=== PATIENT | male | born 1980 | race Two or more races ===

== ENCOUNTER 2020-07-19 12:47 | Outpatient (REF) | payer OTHER, SELFPAY ==
[2020-07-19 14:49] LABS: Anion Gap 11 (12-20); Blood Urea Nitrogen 11 mg/dL (9-16); Calcium 9.3 mg/dL (8.4-10.2); Carbon Dioxide 30 mmol/L (22-29); Chloride 101 mmol/L (96-108); Estimated Glomerular Filt Rate > 60; Glucose Random 75 mg/dL (60-115); Potassium 4.2 mmol/L (3.3-5.1); Sodium 138 mmol/L (135-145)
== END 2020-07-19 12:48 | disposition home or self-care (01) ==
LOC: HO.LAB 12:47
PROVIDERS: PCP Internal Medicine; Visit Provider Internal Medicine Cardiovascular Disease
DX: I48.0 Paroxysmal atrial fibrillation (principal); Z79.899 Other long term (current) drug therapy
CPT/HCPCS: 36415; 80048; 93005

== ENCOUNTER → 2021-06-18 13:30 | Outpatient (BNVA) | payer OTHER, SELFPAY | PROVIDERS: PCP Internal Medicine; Referring Provider Internal Medicine; Visit Provider Internal Medicine Cardiovascular Disease | DX: I48.0 Paroxysmal atrial fibrillation (principal) | CPT/HCPCS: 93005 ==

== ENCOUNTER → 2022-05-22 10:19 | Outpatient (BNVA) | payer OTHER, SELFPAY | PROVIDERS: PCP Internal Medicine; Visit Provider Internal Medicine Cardiovascular Disease | DX: I48.91 Unspecified atrial fibrillation (principal) | CPT/HCPCS: 93005 ==

== ENCOUNTER 2022-06-10 15:29 | Outpatient (REF) | payer OTHER, SELFPAY ==
[2022-06-10 16:26] LABS: Hematocrit 45.7 % (42.0-52.0); Hemoglobin 15.7 g/dl (14.0-18.0); Mean Corpuscular HGB Conc 34.4 g/dl (31.0-36.0); Mean Corpuscular Hemoglobin 30.5 pg (27.0-33.0); Mean Corpuscular Volume 88.7 fL (80.0-98.0); Mean Platelet Volume 10.9 fL (9.4-12.4); Platelet Count 260 X10*3/uL (160-400); Red Blood Count 5.15 X10*6/uL (4.60-5.80); Red Cell Distribution Width 13.5 % (11.0-16.0); White Blood Count 11.6 X10*3/uL (4.8-10.8)
[2022-06-10 16:51] LABS: Anion Gap 11 (12-20); Blood Urea Nitrogen 11 mg/dL (9-16); Calcium 9.6 mg/dL (8.4-10.2); Carbon Dioxide 28 mmol/L (22-29); Chloride 106 mmol/L (96-108); Estimated Glomerular Filt Rate > 60; Glucose Random 82 mg/dL (60-115); Potassium 4.5 mmol/L (3.3-5.1); Sodium 140 mmol/L (135-145)
== END 2022-06-10 15:30 | disposition home or self-care (01) ==
LOC: HO.LAB 15:29
PROVIDERS: PCP Internal Medicine; Referring Provider Internal Medicine; Visit Provider Internal Medicine Cardiovascular Disease
DX: I48.0 Paroxysmal atrial fibrillation (principal)
CPT/HCPCS: 36415; 80048; 85027

== ENCOUNTER 2022-12-14 11:04 | Emergency (ER) | payer OTHER, SELFPAY ==
--- NOTE | ~2022-12-14 | CT_ITS ---
EXAMINATION: CT ABDOMEN AND PELVIS WITH CONTRAST CLINICAL INFORMATION: Pain; history of renal infarction. COMPARISON: CT abdomen and pelvis dated 05/03/2019. TECHNIQUE: Multidetector volumetric images were obtained from the superior aspect of the liver through the pubic symphysis following administration 85 mL of Omnipaque 350 intravenous contrast. Sagittal and coronal reformatted images were obtained on the technologist's workstation. Oral contrast: No This CT examination was performed using dose optimization techniques as appropriate, variously including the following: *Automated exposure control *Adjustment of mA and/or kV according to patient size (this includes techniques or standardized protocols for targeted exams where dose is matched to indication/reason for exam; i.e. extremities or head) *Use of iterative reconstruction technique DLP: 516 mGy-cm FINDINGS: LUNG BASES: There is bibasilar dependent hypoaeration, left greater than right. LIVER, GALLBLADDER, AND BILIARY TREE: The liver is normal in size, shape, and attenuation. No focal hepatic lesion or biliary ductal dilatation is present. The gallbladder is unremarkable with no evidence of radiopaque gallstones, gallbladder wall thickening, or obvious pericholecystic inflammatory changes. PANCREAS: Unremarkable. SPLEEN: Unremarkable. ADRENAL GLANDS: Unremarkable. KIDNEYS AND URETERS: The kidneys are normal in size, shape, and attenuation. No hydronephrosis, hydroureter, or calculi seen. No perinephric stranding. BLADDER: Unremarkable. GASTROINTESTINAL TRACT: The small and large bowel are unremarkable. The colon is partially decompressed, in particular the transverse, descending and rectosigmoid segments. The appendix is unremarkable. ABDOMINAL WALL: No significant hernia is appreciated. LYMPH NODES: Normal. VASCULAR: Unremarkable. PELVIC VISCERA: The prostate and seminal vesicles are unremarkable. OSSEOUS STRUCTURES: There is slight posterior spondylosis of the L4 and L5 upper endplates. No acute or aggressive osseous finding is noted. CT/CT abdomen pelvis w IV con IMPRESSION: No significant abnormality. Fleischner guidelines were followed.
[2022-12-14 11:24] VITALS: BP 127/88; PULSE 107; RESP 20; TEMP 36.1; O2SAT 97; BMI 29.3
--- NOTE | 2022-12-14 11:26 | ED_ITS ---
HPI - Back Pain/Injury General Chief Complaint: Back Pain/Injury Stated Complaint: Lower back pain Time Seen by Provider: 12/14/22 11:58 Source: patient and family Mode of arrival: ambulatory Limitations: no limitations History of Present Illness HPI Narrative: Patient is a 42-year-old male with history of CVA, and subsequent renal infarct currently on Eliquis presenting to the emergency department with complaint of left lower back and hip pain. Patient reports that he strained his left lower back while bending over to lift leaves at work on the 8th of this month. Reports area was sore for approximately 2 weeks following this injury then slowly improved. Patient reports over the past 3-4 days the pain has returned. Around 3am this morning patient states the pain was so severe that it woke him from sleep and brought him to his knees when he got out of bed. He took Tylenol prior to arrival. Reports concern given that the last time he felt pain of this severity it was with his renal infarct. States the pain is radiating around to lateral hip and towards his groin. Reports intermittent episodes of the pain shooting down left leg with certain movements. Denies leg pain at rest. Denies any numbness or tingling to left leg. Reports history of prior right lower back injury approximately 5 years prior. Denies any saddle anesthesia or bowel or bladder incontinence. Denies fevers. Denies dysuria, hematuria or other urinary symptoms. Denies any abnormal penile discharge. Denies any abdominal pain. States the pain is tolerable while laying supine, increases which patient describes as spasms with movement. MD elicited complaint: back pain Pertinent past history: prior back pain and other (renal infarct) Onset (ago): day(s) Timing: constant Severity: severe Similar Symptoms Previously: Yes Quality: sharp, aching and spasming Location: left lower back Radiation: other (Left lateral hip) Exacerbating factors: movement, walking, deep breaths and coughing/sneezing Relieving factors: supine Context: while lifting (initially on 11/25/22) Associated symptoms: denies other symptoms Treatments prior to arrival: other (Tylenol) Related Data Home Medications Medication Instructions Recorded Confirmed metoprolol succinate 25 mg 12.5 mg PO DAILY PRN 06/10/22 06/10/22 tablet,extended release 24 hr Previous Rx's Medication Instructions Recorded diltiazem HCl 180 mg 180 mg PO DAILY 90 days #90 caps 10/28/22 capsule,extended release 24 hr apixaban 5 mg tablet (Eliquis) 5 mg PO BID 30 days #60 tabs 11/30/22 cyclobenzaprine 5 mg tablet 5 mg PO TID PRN muscle spasm #12 12/14/22 tabs lidocaine 5 % topical patch 1 patch topical DAILY #15 ea 12/14/22 Allergies Allergy/AdvReac Type Severity Reaction Status Date / Time No Known Allergies Allergy Verified 12/14/22 11:32 [No Known Allergies*] Review of Systems Review of Systems: As per HPI. Yes all other systems are reviewed and are negative Constitutional: Constitutional: Reports as per HPI [facility] Past Medical History Medical History Paroxysmal atrial fibrillation Renal infarct Surgical History No pertinent past surgical history Family History Family History Father Medical history unknown Mother Brain cancer Sister Heart disease Sleep apnea CVD (cardiovascular disease) Maternal Grandfather Cancer Son In good health Social History Social History Alcohol intake: current Alcohol intake frequency: a few times a month Cigarettes Per Day: 10 Advance Directives: No Advance Directives Information Provided: No Physical Exam Vital Signs: Vital Signs: Last Vital Signs Temp 97.0 F 12/14/22 11:24 Pulse 107 H 12/14/22 11:24 Resp 20 12/14/22 11:24 BP 127/88 12/14/22 11:24 Pulse Ox 97 12/14/22 11:24 O2 Del Method Room Air 12/14/22 11:24 BMI result Body Mass Index 29.3 Vital signs have been reviewed and appear to be correct. Blood pressure normal. Heart rate mildly tachycardic. Respiratory rate normal. Temperature normal. Oxygen saturation normal. Const: General: cooperative, healthy appearing and no acute distress Orientation/consciousness: oriented to person, oriented to place, oriented to time and patient oriented x3 Limitations: no limitations HEENT: Head: Yes normocephalic and Yes atraumatic Ears: external ears normal General nose exam: Normal external nose present Face and sinus: Yes face symmetric Mouth: oropharynx normal and moist mucous membranes Throat: Yes uvula midline Eyes: Pupils: Equal, round and reactive pupils present Neck: Neck: Yes normal visual inspection and Yes supple Resp: Effort & Inspection: normal respiratory effort and able to speak in complete sentences Auscultation: clear to auscultation bilaterally Cardio: Rate: regular rate Rhythm: regular rhythm Heart sounds: S1 normal heart sound present and S2 normal heart sound present GI: Inspection: Yes normal to inspection Palpation (GI): Soft to palpation, nontender and no hernias Auscultation: normoactive bowel sounds : General: Yes no CVA tenderness Back/Spine/Pelvis: Back: no CVA tenderness Cervical Spine: normal cervical lordosis, cervical ROM normal and No Cervical spine tenderness Thoracic/Lumbar Spine: thoracic and lumbar spine normal to inspection, thoraco-lumbar ROM normal, pain with thoraco-lumbar ROM, paraspinal muscle tenderness on the left in the upper thoracic and in the mid lumbar, No thoracic spinal tenderness, No lumbar spinal tenderness and straight leg raise positive bilateral Pelvis: no pain with lateral compression Sacroiliac joints: on the left tender to palpation Skin: General skin exam: elasticity normal and turgor normal Neuro: General: oriented to person, oriented to place, oriented to time, patient oriented x3, gait normal, tone normal, moves all extremities, Normal lig ht touch and pain sensation, no focal motor deficits, CN's II-XI intact bilaterally and deep tendon reflexes 2+ bilaterally Cranial nerves: Yes Equal, round and reactive pupils present Cognition (Neuro): normal cognition Motor exam (neuro): 5/5 motor strength present throughout, Normal motor muscle tone present throughout and Motor abnormalities not present Sensory Exam: Normal double simultaneous stimulation for sensation Extrem: General: Yes full ROM, Yes normal exam except as noted, Yes no pedal edema and Yes no calf tenderness Left lower extremity: hip/thigh Details: normal to inspection, tenderness Location: of the hip Location: laterally and normal ROM; no ecchymosis Psych: Mental Status: mental status grossly normal Affect: normal affect Thought process: Normal thought process present Course Course Course Narrative: This is an RME: Additional HPI, ROS, PE not included below will be deferred to primary provider. Patient is a 42-year-old male presents emergency department for evaluation of back pain. He reports in March 2019 reports hx of a stroke with renal infarct 2wks later. Reports that he woke with left lower back/hip pain this morning, that has been constant since then but now feels like a diffuse lower back pain. He reports that the severe pain he experienced this morning felt similar to renal infarct pain he has experienced in the past. He is anticoagulated with Eliquis. Denies any genitourinary symptoms or constipation/diarrhea. He does endorse that earlier this month 11/25/2022 he can straight is doing some heavy lifting, he has had persistent back pain since the n, but this morning was more severe. Plan: Urinalysis, serum labs, CT AP, placed in WR pending bed availability for pain management Medications Administered Discontinued Medications Generic Name Dose Route Start Last Admin Trade Name Freq PRN Reason Stop Dose Admin Cyclobenzaprine HCl 10 mg 12/14/22 12:16 12/14/22 12:21 Cyclobenzaprine Hcl 10 Mg Tablet PO 12/14/22 12:17 10 mg ONCE ONE Administration Medical Decision Making Medical Decision Making [facility] Narrative: Patient is a 42-year-old male with history of CVA, and subsequent renal infarct currently on Eliquis presenting to the emergency department with complaint of left lower back and hip pain. On exam patient is awake, A+Ox3, VS WNL, afebrile, normal neurological exam without focal deficits, no CVA tenderness, no midline spinal tenderness, tenderness over left SI joint and left lateral hip, full range of motion to left hip, straight leg raise positive bilaterally, 2+ DP and PT pulses bilaterally, DTRs 2+ throughout, no palpable hernias. Given rep orted symptoms and physical exam findings, initial differential includes lumbar strain, lumbar radiculopathy, SI joint dysfunction, hip strain. Feel renal infarct unlikely, however will obtain CT scan out of abundance of caution. Labs notable for no leukocytosis, no electrolyte imbalance, no DAISY. No evidence of infection on UA. CT notable for no evidence of renal infarct or other significant abnormality. My interpretation is in agreement with the radiologist's interpretation. Likely muscle strain and feel patient is stable for discharge home. Will prescribe cyclobenzaprine and advised this patient to alternate Tylenol and ibuprofen, take frequent baths with Epsom salt, perform gentle stretching exercises. Differential Diagnosis Differential Diagnoses: The differential diagnosis associated with the presentation includes As per [facility]. Lab Data [facility] Lab Attestation statement: I reviewed the patient's lab results. As per MDM 12/14/22 11:50 12/14/22 11:50 Labs: Lab Results 12/14/22 12/14/22 12/14/22 Range/Units 11:50 11:50 11:50 WBC 8.3 (4.8-10.8) X10*3/uL RBC 5.35 (4.60-5.80) X10*6/uL Hgb 15.7 (14.0-18.0) g/dl Hct 46.3 (42.0-52.0) % MCV 86.5 (80.0-98.0) fL MCH 29.3 (27.0-33.0) pg MCHC 33.9 (31.0-36.0) g/dl RDW 13.5 (11.0-16.0) % Plt Count 270 (160-400) X10*3/uL MPV 10.0 (9.4-12.4) fL Immature Gran % (Auto) 0.2 (0.0-0.4) % Neut % (Auto) 56.6 (45-73) % Lymph % (Auto) 30.4 (20-40) % [place] % (Auto) 11.0 (2-11) % Eos % (Auto) 1.2 (0-4) % Baso % (Auto) 0.6 (0-2) % Lymph # (Auto) 2.5 (1.2-4.9) X10*3/uL [place] # (Auto) 0.9 (0.1-1.2) X10*3/uL Eos # (Auto) 0.1 (0.0-0.4) X10*3/uL Baso # (Auto) 0.1 (0.0-0.2) X10*3/uL Abs Immat Gran (auto) 0.02 (0.00-0.03) X10*3/uL Absolute Neuts (auto) 4.7 (2.0-8.3) x10*3/uL Absolute Nucleated RBC 0.000 (0.0-0.012) X10*3/uL Nucleated RBC % (auto) 0.0 (0.0-0.2) /100WBC PT 13.3 (11.1-13.3) SEC INR 1.1 (0.9-1.1) Sodium 138 (135-145) mmol/L Potassium 3.7 (3.3-5.1) mmol/L Chloride 106 (96-108) mmol/L Carbon Dioxide 25 (22-29) mmol/L Anion Gap 11 L (12-20) BUN 13 (9-16) mg/dL Creatinine 0.86 (0.5-1.4) mg/dL Estim Creat Clear Calc 113.9 Estimated GFR > 60 Random Glucose 107 (60-115) mg/dL Calcium 9.5 (8.4-10.2) mg/dL Total Bilirubin 1.2 H (0.0-1.0) mg/dL AST 20 (5-37) U/L ALT 24 (0-40) U/L Alkaline Phosphatase 75 (39-117) U/L Total Protein 7.4 (6.5-8.0) g/dL Albumin 4.1 (3.5-5.0) g/dL Independent Interpretation I performed an independent interpretation of an: CT Scan Interpretation: No evidence of renal infarct, no other abnormality Radiology Impression Discussion of test interpretation with radiology: I have reviewed the radiologist's reading. Radiologist Impression: CT/CT abdomen pelvis w IV con IMPRESSION: No significant abnormality.? ? Fleischner guidelines were followed. External Record Review External record reviewed: Inpatient record, Office record and Outpatient record Prescription Management I considered prescription management with: Other Discharge Plan Discharge Clinical Impression: Lumbar strain Patient Disposition: Home, Self-Care Instructions: Low Back Strain (ED), Acute Low Back Pain (ED), Lower Back Exercises (ED) Additional Instructions: You were evaluated in the emergency department today for back pain. Your evaluation did not show signs of medical conditions requiring emergent intervention at this time. We recommended that you use Tylenol per package directions every 6 hours as needed for pain. You have been prescribed a muscle relaxer which you may take every 8 hours as needed for spasms. You have been prescribed 5% topical lidocaine patches which you can wear for up to 12 hours in a 24 hour period. Do not apply heat directly over the patches. Please schedule an appointment for follow-up with your primary care physician this week for further evaluation of your symptoms. Return to the emergency department if you experience worsening back pain, difficulty walking, fevers, numbness, tingling, incontinence, groin numbness or tingling, or any other concerning symptoms. Prescriptions: New cyclobenzaprine 5 mg tablet 5 mg PO TID PRN (Reason: muscle spasm) Qty: 12 0RF lidocaine 5 % adhesive patch,medicated 1 patch topical DAILY Qty: 15 0RF Rx Instructions: leave on most painful area for up to 12 hrs No Action diltiazem HCl 180 mg capsule,extended release 24hr 180 mg PO DAILY 90 Days Qty: 90 3RF Eliquis 5 mg tablet 5 mg PO BID 30 Days Qty: 60 6RF metoprolol succinate 25 mg tablet extended release 24 hr 12.5 mg PO DAILY PRN
[2022-12-14 11:55] LABS: MANUAL DIFF FLAG NO
[2022-12-14 11:59] LABS: Basophils Absolute Auto 0.1 X10*3/uL (0.0-0.2); Basophils Percent Auto 0.6 % (0-2); Eosinophils Absolute Auto 0.1 X10*3/uL (0.0-0.4); Eosinophils Percent Auto 1.2 % (0-4); Hematocrit 46.3 % (42.0-52.0); Hemoglobin 15.7 g/dl (14.0-18.0); Imm Gran Abs Auto 0.02 X10*3/uL (0.00-0.03); Imm Gran Pct Auto 0.2 % (0.0-0.4); Lymphocytes Absolute Auto 2.5 X10*3/uL (1.2-4.9); Lymphocytes Percent Auto 30.4 % (20-40); Mean Corpuscular HGB Conc 33.9 g/dl (31.0-36.0); Mean Corpuscular Hemoglobin 29.3 pg (27.0-33.0); Mean Corpuscular Volume 86.5 fL (80.0-98.0); Monocytes Absolute Auto 0.9 X10*3/uL (0.1-1.2); Neutrophils Absolute Auto 4.7 x10*3/uL (2.0-8.3); Neutrophils Percent Auto 56.6 % (45-73); Platelet Count 270 X10*3/uL (160-400); Red Blood Count 5.35 X10*6/uL (4.60-5.80); Red Cell Distribution Width 13.5 % (11.0-16.0); White Blood Count 8.3 X10*3/uL (4.8-10.8)
[2022-12-14 12:01] LABS: INTERNATIONAL NORM RATIO 1.1 (0.9-1.1); Prothrombin Time 13.3 SEC (11.1-13.3)
[2022-12-14 12:12] LABS: Alanine Aminotransferase 24 U/L (0-40); Albumin Level 4.1 g/dL (3.5-5.0); Alkaline Phosphatase 75 U/L (39-117); Anion Gap 11 (12-20); Aspartate Amino Transferase 20 U/L (5-37); Bilirubin Total 1.2 mg/dL (0.0-1.0); Blood Urea Nitrogen 13 mg/dL (9-16); Calcium 9.5 mg/dL (8.4-10.2); Carbon Dioxide 25 mmol/L (22-29); Chloride 106 mmol/L (96-108); Creatinine Clr Calc Pharmacy 113.9; Estimated Glomerular Filt Rate > 60; Glucose Random 107 mg/dL (60-115); Potassium 3.7 mmol/L (3.3-5.1); Sodium 138 mmol/L (135-145); Total Protein 7.4 g/dL (6.5-8.0)
[2022-12-14] MEDS: Cyclobenzaprine HCl 10 MG TABLET PO (12:21)
--- NOTE | 2022-12-14 12:27 | PC.NURSE ---
20g IV placed in left medial wrist, pt awaiting CT w/ con. pt medicated by ANAYA Wong for 11/27 pain. pt resting supine with spouse at bedside NAD noted
== END 2022-12-14 14:45 | disposition home or self-care (01) ==
PROVIDERS: Nurse Practitioner Family; Emergency Provider Emergency Medicine; PCP Internal Medicine
DX: S39.012A Strain of muscle, fascia and tendon of lower back, initial encounter (principal); X50.9XXA Other and unspecified overexertion or strenuous movements or postures, initial encounter; N28.0 Ischemia and infarction of kidney; Z86.73 Personal history of transient ischemic attack (TIA), and cerebral infarction without residual deficits; Z79.01 Long term (current) use of anticoagulants; Y93.H1 Activity, digging, shoveling and raking; Y92.89 Other specified places as the place of occurrence of the external cause; Y99.0 Civilian activity done for income or pay
CPT/HCPCS: 36415; 74177; 80053; 85025; 85610; 99284

== ENCOUNTER 2023-06-18 15:18 | Outpatient (AMB) | payer OTHER, SELFPAY ==
[2023-06-18 15:19] VITALS: BP 120/76; PULSE 93; BMI 29.9
--- NOTE | 2023-06-18 15:19 | A.OFFVIS_ITS ---
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 He said about twice a year he gets an episode of atrial fibrillation without any clear triggers. He then takes half a dose of metoprolol in the episode can last up to 2 hours. He then feels tired and usually takes time of work. However this does not affect his lifestyle. Overall otherwise no prolonged episodes of atrial fibrillation. No changes exercise capacity. Denies any exertional chest pain shortness of breath. Blood pressures been generally well controlled. No bleeding issues or neurologic events. [facility] Medical History Paroxysmal atrial fibrillation Renal infarct Surgical History No pertinent past surgical history Family History Father Medical history unknown Mother Brain cancer Sister Heart disease Sleep apnea CVD (cardiovascular disease) Maternal Grandfather Cancer Son In good health Social History Alcohol intake: current Alcohol intake frequency: a few times a month Cigarettes Per Day: 10 Review of Systems Const Denies chills, Denies fatigue, Denies fever(s), Denies frequent falls, Denies weakness, Denies weight gain and Denies weight loss ENT Denies dizziness Card Denies chest pain, Denies leg edema, Denies lightheadedness, Denies palpitations, Denies dyspnea, Denies dyspnea on exertion, Denies orthopnea and Denies other (loss of consciousness) Resp Denies cough, Denies dyspnea and Denies dyspnea on exertion GI Denies hematochezia and Denies change in stool character Musc Denies abnormal gait, Denies muscle weakness, Denies numbness, Denies radiating pain into limb and Denies tingling Neuro Denies abnormal gait, Denies dizziness, Denies frequent falls, Denies numbness, Denies tingling and Denies weakness Endo Denies fatigue and Denies palpitations Physical Exam Vital Signs: Last Vital Signs Pulse 93 06/18/23 15:19 BP 120/76 06/18/23 15:19 BMI result Body Mass Index 29.9 Const General: cooperative, comfortable, alert and awake Nutritional Appearance: average body habitus Orientation/consciousness: patient oriented x3 Limitations: no limitations HEENT Head: Yes contusion Neck Neck: Yes trachea midline, Yes supple and Yes no JVD Resp Effort & Inspection: normal respiratory effort Auscultation: clear to auscultation bilaterally Cardio Jugular venous distension: no JVD Palpation: normal PMI Rate: regular rate Rhythm: regular rhythm Heart sounds: S1 normal heart sound present and S2 normal heart sound present GI Auscultation: normal bowel sounds Skin General skin exam: no rashes or lesions noted Neuro General: patient oriented x3 and no focal motor deficits Extrem General: Yes no clubbing, cyanosis or edema Psych Appearance: grossly normal Office Procedures EKG Details: EKG shows normal sinus rhythm with T-wave inversion in lead 3 and AVF with nonspecific T-wave changes in the inferolateral lateral leads. [id number], Complete Assessment & Plan Assessment & Plan (1) Paroxysmal atrial fibrillation: Code(s): I48.0 - Paroxysmal atrial fibrillation Plan: Highly symptomatic paroxysmal atrial fibrillation in this young man which has remained predominantly control and suppressed on current therapy. He has couple of episodes of atrial fibrillation throughout the year which are not life- limiting. No change in therapy. Continue p.r.n. metoprolol will change to short-acting metoprolol tartrate. Continue Cardizem CD 180 mg daily. Also given his embolic phenomenon to the kidney I would continue Eliquis 5 mg b.i.d. for life. Semi annual renal function test should be pursued. Avoidance of stimulants was discussed. He understands agrees. Given his baseline EKG today which appears slightly abnormal I would suggest him to undergo an echocardiogram to evaluate for any structural changes in the heart including evidence of left ventricular hypertrophy. Will follow up in the clinic in 1 year's time, sooner p.r.n.. Thank you for allowing me to partake in his care Orders: Orders CA echo transthoracic complete Today I48.0 - Paroxysmal atrial fibrillation Medications: New metoprolol tartrate 12.5 mg (1/2 x 25 mg) PO ONCE PRN 20 tabs 1RF Episode of atrial fibrillation I48.0 - Paroxysmal atrial fibrillation Coding Level of Care Code Est Pt Level 4 (00181) Diagnoses Paroxysmal atrial fibrillation I48.0 CPT Codes EKG - CPT: 47218-[id number], Complete ([id number])
== END 2023-06-18 15:41 | disposition home or self-care (01) ==
PROVIDERS: Visit Provider Internal Medicine Cardiovascular Disease
DX: I48.0 Paroxysmal atrial fibrillation (principal)
CPT/HCPCS: 93010; 99214

== ENCOUNTER → 2023-06-18 15:18 | Outpatient (BNVA) | payer OTHER, SELFPAY | PROVIDERS: Visit Provider Internal Medicine Cardiovascular Disease | DX: I48.0 Paroxysmal atrial fibrillation (principal); Z79.01 Long term (current) use of anticoagulants; Z79.899 Other long term (current) drug therapy | CPT/HCPCS: 93005 ==

== ENCOUNTER → 2023-07-14 15:50 | Outpatient (REF) | payer OTHER, SELFPAY ==
--- NOTE | 2023-07-14 15:53 | CA_ITS ---
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 The calculated ejection fraction is 57% by biplane method. - No obvious valvular pathology seen on this study. Findings Left Ventricle Normal left ventricular cavity size. There is normal left ventricular wall thickness. The left ventricular systolic function is normal. The calculated ejection fraction is 57% by biplane method. There is no evidence of regional wall motion abnormalities. Diastolic function is normal for age. LV peak GLS -17.8%. Right Ventricle Normal right ventricular cavity size and systolic function. Atria Both atria are normal in size. Aortic Valve There is a normal trileaflet aortic valve. There is no aortic valve stenosis. There is no aortic valve regurgitation. Mitral Valve The mitral valve appears normal. There is trace mitral valve regurgitation. There is no mitral valve stenosis. Pulmonic Valve The pulmonic valve is likely normal. Tricuspid Valve Normal tricuspid valve structure. There is trace tricuspid valve regurgitation. There is no evidence of pulmonary hypertension. Great Vessels The asc aorta is normal in size. Venous The inferior vena cava is normal in size and collapses greater than 50% with inspiration. Pericardium/Pleural There is no evidence of pericardial effusion. Prior Study Comparison No significant change compared to prior study dated: 04/23/2019. Recommendations, Care & Conclusions No obvious valvular pathology seen on this study. Measurements 2D Linear Measurements IVSd: 0.76 0.6-0.9/0.6-1.0 cm LVIDd: 4.47 3.9-5.3/4.2-5.9 cm LVIDd Index: 2.32 2.4-3.2/2.2-3.1 cm/m2 LVIDs: 3.21 2.0-3.6 cm LVPWd: 0.79 0.7-1.1 cm LA Diam: 3.20 2.7-3.8/3.0-4.0 cm LAIDs Index: 1.66 1.5-2.3 cm/m2 LV Mass: 133.44 67-162/88-224 g LV Mass Index: 69.14 43-95/49-115 g/m2 LVOT Diam: 2.20 3.0+(-)1.3 cm 2D Systolic Function EF 4C: 58.30 >55% EF 2C: 55.90 >55% EF BiP: 56.90 >55% Mitral Valve MV Pk E: 0.69 MV PK A: 0.45 MV Decel Time: 211.00 E/A: 1.50 E'Lateral: 14.60 E'Medial: 10.00 E/E' Med: 6.90 E/E' Lat: 4.70 PHT: 62.00 MVA PHT: 3.55 Decel Levy: 3.26 Aortic Valve AoV Pk Arturo: 1.19 AoV Mn Arturo: 0.83 AoV VTI: 0.25 AoV Pk Grad: 6.00 Aov Mn Grad: 3.00 DANA Cont.VTI: 2.66 LVOT LVOT Pk Arturo: 0.99 LVOT Mn Arturo: 0.58 LVOT VTI: 0.18 LVOT Pk Grad: 4.00 LVOT Mn Grad: 2.00 LVOT Diam: 2.20 LVOT Area: 3.80 Diastolic Function MV Pk E: 0.69 MV Pk A: 0.45 E/A: 1.50 E'Medial: 10.00 E/E' Med: 6.90 E' Laterial: 14.60 E/E' Lat: 4.70 Right Ventricle TAPSE (mm): 25.80 TVS' Arturo: 15.60 Tricuspid Valve TR Pk Arturo: 1.69 TR Pk Grad: 11.00 RA Press: 3.00 RVSP: 14.00 Great Vessels Aorta Sinus of Valsalva: 3.89 2.0-3.[address] Ridge: 3.12 1.7-3.4 cm Ao Asc: 3.40 2.1-3.4 cm Ao Arch: 2.90 Updated in Other Vendor System with Status of Final Daniel Hendricks MD electronically signed on 07/15/2023 11:51:42 AM with status of Final
== END ==
LOC: HO.CARD 15:50
PROVIDERS: PCP Internal Medicine; Visit Provider Internal Medicine
DX: I48.0 Paroxysmal atrial fibrillation (principal)
CPT/HCPCS: 93306; 93356

== ENCOUNTER → 2023-07-14 15:53 | Outpatient (BNV) | payer OTHER, SELFPAY | PROVIDERS: PCP Internal Medicine; Visit Provider Internal Medicine | DX: I48.0 Paroxysmal atrial fibrillation (principal) | CPT/HCPCS: 93306; 93356 ==

== ENCOUNTER 2023-12-02 10:07 | Emergency (ER) | payer OTHER, SELFPAY ==
--- NOTE | ~2023-12-02 | XR_ITS ---
EXAMINATION: XR SHOULDER, RIGHT CLINICAL INFORMATION: Fall/injury, pain COMPARISON: None available. TECHNIQUE: 3 views of the right shoulder. FINDINGS: No acute fracture or dislocation. Glenohumeral and acromioclavicular alignment is anatomic with normal joint spaces. No acute soft tissue abnormality. No abnormal soft tissue calcifications. The included right lung is clear. XR/XR shoulder RT min 2V IMPRESSION: No acute fracture or dislocation.
[2023-12-02 10:10] VITALS: BP 127/87; PULSE 81; RESP 16; TEMP 37; O2SAT 96; BMI 29.4
--- NOTE | 2023-12-02 10:21 | ED_ITS ---
HPI - Extremity Problem General Chief complaint: Extremity Injury, Upper Stated complaint: shoulder inj @ work Time Seen by Provider: 12/02/23 10:21 Source: patient Mode of arrival: ambulatory Limitations: no limitations History of Present Illness ED Provider: Dee Girard PA-C HPI Narrative: Patient is a 43 year old assigned male at with a history of atrial fib on eliquis presenting to the emergency department today with right shoulder pain. Patient states that he accidentally stepped into a hole in the truck and fell through, catching his right shoulder on the way down. Patient denies any head strike, loss of consciousness, dizziness, lightheadedness, abdominal pain, nausea, vomiting, fever, chills, blurry vision, double vision, loss of vision, chest pain, difficulty breathing, shortness of breath, back pain, night sweats, pain with urination, increased urinary frequency, increased urinary urgency, blood in his urine or stool, syncope or a near syncopal episode, bowel incontinence, bladder incontinence, or any other complaints at this time. MD Complaint: extremity pain Onset (ago): day(s) (1) Pain Consistency: constant Location: right and upper extremity Severity scale (1-10): 4 Quality: aching Radiation: none Relieving factors: nothing Exacerbating factors: range of motion Associated symptoms: denies other symptoms Related Data Previous Rx's ?Medication ?Instructions ?Recorded cyclobenzaprine 5 mg tablet 5 mg PO TID PRN muscle spasm #12 12/14/22 tabs lidocaine 5 % topical patch 1 patch topical DAILY #15 ea 12/14/22 apixaban 5 mg tablet (Eliquis) 5 mg PO BID 30 days #60 tabs 07/08/23 metoprolol tartrate 25 mg tablet 12.5 mg (1/2 x 25 mg) PO ONCE PRN 07/20/23 Episode of atrial fibrillation 90 days #65 tabs diltiazem HCl 180 mg 180 mg PO DAILY #90 caps 10/06/23 capsule,extended release 24 hr Allergies Allergy/AdvReac Type Severity Reaction Status Date / Time No Known Allergies Allergy Verified 12/02/23 10:12 [No Known Allergies*] Review of Systems Constitutional: Constitutional: Reports no additional constitutional complaints, Denies chills, Denies fever(s) and Denies night sweats Eyes: Eyes: Reports no additional eye complaints, Denies blurry vision, Denies change in vision, Denies diplopia, Denies eye discharge, Denies loss of vision and Denies eye pain ENT: Denies dizziness Cardiovascular: Cardiovascular: Reports no additional cardiovascular complaints, Denies chest pain, Denies lightheadedness, Denies Loss of Consciousness and Denies dyspnea Respiratory: Respiratory: Reports no additional respiratory complaints and Denies dyspnea Gastrointestinal: Gastrointestinal: Reports no additional gastrointestinal complaints, Denies abdominal pain, Denies melena, Denies hematochezia, Denies change in bowel habits and Denies change in stool character Genitourinary: Genitourinary: Reports no additional male genitourinary complaints, Denies hematuria, Denies oliguria, Denies difficulty urinating, Denies dysuria, Denies urinary frequency, Denies urinary hesitancy, Denies uri nary incontinence and Denies urinary urgency Musculoskeletal: Musculoskeletal: Reports no additional musculoskeletal complaints, Denies numbness and Denies tingling Comments: right shoulder pain Neurologic: Denies dizziness, Denies loss of vision, Denies numbness and Denies tingling Psychiatric: Psychiatric: Reports no additional psychiatric complaints Endocrine: Endocrine: Reports no additional endocrine complaints Hematologic/Lymphatic: Hematologic/Lymphatic: Reports no additional hematologic/lymphatic complaints Allergic/Immunologic: Allergic/Immunologic: Reports no additional allergic/immunologic complaints [facility] Past Medical History Attestation statement: The following information was validated with the patient. Source: old records reviewed and nursing notes reviewed Medical History Renal infarct Paroxysmal atrial fibrillation Surgical History No pertinent past surgical history Family History Family History Father Medical history unknown Mother Brain cancer Sister Heart disease Sleep apnea CVD (cardiovascular disease) Maternal Grandfather Cancer Son In good health Social History Social History Alcohol intake: current Alcohol intake frequency: a few times a month Cigarettes Per Day: 10 Advance Directives: No Advance Directives Information Provided: No Physical Exam Vital Signs: Vital Signs: Last Vital Signs Temp 98.6 F 12/02/23 12:20 Pulse 81 12/02/23 12:20 Resp 16 08/14/24 12:20 BP 127/87 12/02/23 12:20 Pulse Ox 96 12/02/23 12:20 O2 Del Method Room Air 12/02/23 12:20 BMI result Body Mass Index 29.4 Const: General: cooperative, no acute distress, alert and awake Nutritional Appearance: well nourished Orientation/consciousness: patient oriented x3 Limitations: no limitations HEENT: Head: Yes normal to inspection and Yes atraumatic Ears: hearing grossly normal bilaterally and external ears normal General nose exam: Normal external nose present, no nasal discharge noted and no epistaxis Face and sinus: Yes normal facial exam, No abrasion and No laceration Mouth: Normal oral and palatal mucosa present, no drooling and no muffled voice Eyes: General: appearance normal, both eyes and all related structures Periorbital: periorbital findings normal Eyelids: Yes eyelids normal Conjunctivae: conjunctivae normal Pupils: Equal, round and reactive pupils present EOM: EOMs intact bilaterally Neck: Neck: Yes normal visual inspection, Yes full ROM and Yes no lymphadenopathy Chest: Chest palpation & inspection: normal inspection of the chest Resp: Effort & Inspection: normal respiratory effort and able to speak in complete sentences GI: Inspection: Yes normal to inspection Neuro: General: patient oriented x3 and moves all extremities Cranial nerves: Yes Equal, round and reactive pupils present Cognition (Neuro): normal cognition Extrem: Other: pain with right shoulder ROM General: Yes normal to inspection and Yes capillary refill normal Psych: Appearance: grossly normal Mental Status: mental status grossly norm al Affect: normal affect Attitude: cooperative Thought process: Normal thought process present Thought content: Normal thought content present Insight: Good insight present (Psych) Medical Decision Making Medical Decision Making MDM Narrative: Patient is a 44 year old assigned male at with a history of atrial fib on Eliquis presenting to the emergency department today with right shoulder pain. Patient's physical exam showed pain with ROM of the right shoulder consistent with a rotator cuff injury. Patient's right shoulder x-ray showed no acute process. I explained my physical exam findings as well as all test results to the patient. I answered all questions asked by the patient. I stressed the importance of the patient taking his medication as directed (either prescribed or as the over the counter packaging recommends). I stressed the importance of the patient following up with his primary care provider, work connection, and an orthopedic provider. I stressed the importance of the patient returning to the emergency department immediately if his symptoms were to worsen or if he were to develop any dizziness, shortness of breath, difficulty breathing, chest pain, blurry vision, loss of vision, nausea, vomiting, abdominal pain, fever, chills, back pain, or any other complaints. Patient verbalized agreement and understanding with this treatment plan and discharge. Differential Diagnosis Differential Diagnoses: The differential diagnosis associated with the presentation includes Rotator cuff injury Shoulder pain Shoulder injury Admission/Observation Consideration of admission/observation: Escalation of care including admission/observation considered Patient would have been admitted to the hospital had his work up had any findings where hospital admission was appropriate and his clinical presentation warranted hospital admission. Independent Interpretation I performed an independent interpretation of an: Plain X-Ray Interpretation: My interpretation is in agreement with the radiologist's impression of this imaging study. EXAMINATION: XR SHOULDER, RIGHT CLINICAL INFORMATION: Fall/injury, pain COMPARISON: None available. TECHNIQUE: 3 views of the right shoulder. FINDINGS: No acute fracture or dislocation. Glenohumeral and acromioclavicular alignment is anatomic with normal joint spaces. No acute soft tissue abnormality. No abnormal soft tissue calcifications. The included right lung is clear. XR/XR shoulder RT min 2V IMPRESSION: No acute fracture or dislocation. Dictated By: Agusto Myers Signed By: Electronically signed by Agusto Myers 12/02/23 1201 Radiology Impression Discussion of test interpretation with radiology: I have reviewed the radiologist's reading. Discharge Plan Discharge Clinical Impression: Rotator cuff injury Patient Disposition: Home, Self-Care Instructions: Rotator Cuff Injury (ED), Rotator Cuff Injury Exercises (DC) Additional Instructions: Follow up with your primary care provider, an orthopedic provider, and work connection. Return to the emergency department immediately if your symptoms worsen or if you develop any dizziness, shortness of breath, difficulty breathi ng, chest pain, blurry vision, loss of vision, nausea, vomiting, abdominal pain, fever, chills, back pain, or any other complaints. Prescriptions: No Action Eliquis 5 mg tablet 5 mg PO BID 30 Days Qty: 60 6RF metoprolol tartrate 25 mg tablet 12.5 mg PO ONCE PRN (Reason: Episode of atrial fibrillation) 90 Days Qty: 65 2RF Rx Instructions: Take a HALF of a tablet as needed for episode of Atrial Fibrillation diltiazem HCl 180 mg capsule,extended release 24hr 180 mg PO DAILY Qty: 90 2RF cyclobenzaprine 5 mg tablet 5 mg PO TID PRN (Reason: muscle spasm) Qty: 12 0RF lidocaine 5 % adhesive patch,medicated 1 patch topical DAILY Qty: 15 0RF Rx Instructions: leave on most painful area for up to 12 hrs Referrals: [facility] [Provider Group] (Call to establish and follow up with an radiological health specialist.) Work Connection [Provider Group] (Call to establish and follow up with a work connection given this was a work place injury. ) Marcy Lynn MD [Primary Care Provider] - Stand Alone Forms: Work/School Release Interventions: ED Discharge Assessment Last Done: 12/02/23 12:20 Discharge Date/Time: 12/02/23 12:20 Print Language: Spanish
[2023-12-02 12:20] VITALS: BP 127/87; PULSE 81; RESP 16; TEMP 37; O2SAT 96
== END 2023-12-02 12:20 | disposition home or self-care (01) ==
PROVIDERS: Emergency Provider Emergency Medicine; PCP Internal Medicine
DX: S46.001A Unspecified injury of muscle(s) and tendon(s) of the rotator cuff of right shoulder, initial encounter (principal); M25.511 Pain in right shoulder; I48.91 Unspecified atrial fibrillation; Y33.XXXA Other specified events, undetermined intent, initial encounter; Y93.89 Activity, other specified; Y92.89 Other specified places as the place of occurrence of the external cause; Y99.8 Other external cause status; Z79.899 Other long term (current) drug therapy; Z79.01 Long term (current) use of anticoagulants
CPT/HCPCS: 73030; 99282; 99283

== ENCOUNTER 2023-12-30 14:50 | Outpatient (AMB) | payer OTHER, SELFPAY ==
--- NOTE | 2023-12-30 14:55 | A.OFFVIS_ITS ---
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 Patient reports he was in the back of a work truck when he stepped back his foot went through a small hole when his arm was injured. He presented [place] [facility] the next day due to his pain, xrays were taken and referred to orthopedics. Currently his pain is located in his shoulder and an occasional tingling in his elbow and neck. Limited ROM. He has discomfort with sleeping. Allergies No Known Allergies [No Known Allergies*] Allergy (Verified 12/30/23 15:02) Medication List - Last Reconciled 12/30/23 by MARGARETH Macias-Mika apixaban (Eliquis) 5 mg PO BID 30 days cyclobenzaprine 5 mg PO TID PRN diltiazem HCl CD 180 mg PO DAILY lidocaine 5% 1 patch topical DAILY metoprolol tartrate 12.5 mg (1/2 x 25 mg) PO ONCE PRN 90 days [facility] Medical History Renal infarct Paroxysmal atrial fibrillation Surgical History No pertinent past surgical history Family History Father Medical history unknown Mother Brain cancer Sister Heart disease Sleep apnea CVD (cardiovascular disease) Maternal Grandfather Cancer Son In good health Social History (Updated 12/30/23 @ 15:05 by KRYSTINA Duvall) Alcohol intake: current Alcohol intake frequency: a few times a month Patient Tobacco Use Status: Current everyday Tobacco user Cigarettes Per Day: 10 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 Tenderness over the bicipital groove and along the deltoid region of the shoulder. Forward flexion to 90, external rotation to 45, internal rotation to S1. Negative Gale and cross body abduction. NVI. Significant weakness with RTC strength testing when compared to the contralateral side. Office Procedures Fracture Care Fracture Billing Code: Fracture Billing Code Results Reviewed Results Reviewed: X-rays of the right shoulder obtained on 12/02/23 show potentially displaced greater tuberosity avulsion fracture. Assessment & Plan Assessment & Plan (1) Injury of right rotator cuff: Code(s): S46.001A - Unspecified injury of muscle(s) and tendon(s) of the rotator cuff of right shoulder, initial encounter Category: Medical (2) Fracture of greater tuberosity of right humerus: Code(s): S42.251A - Displaced fracture of greater tuberosity of right humerus, initial encounter for closed fracture Category: Medical Plan Patient was sent for MRI of the right shoulder to further evaluate the extent of his injury including the RTC and surrounding structures. He will also begin physical therapy to work on ROM and periscapular stabilization. Despite being a work injury, he has been working without limitations. He will see me back once the scan is complete to discuss the next step in his treatment. Orders: Orders 2 PT Evaluation and Treatment Today S42.251A - Displaced fracture of greater tuberosity of right humerus, initial encounter for closed fracture, S46.001A - Unspecified injury of muscle(s) and tendon(s) of the rotator cuff of right shoulder, initial encounter MR shoulder RT wo con Today S42.251A - Displaced fracture of greater tuberosity of right humerus, initial encounter for closed fracture, S46.001A - Unspecified injury of muscle(s) and tendon(s) of the rotator cuff of right shoulder, initial encounter Patient Instructions: Scribed for Vashti Dickinson PA-C, by Juvenal Mccullough medical claims specialist, on 12/20/2023 at 3:00 PM EST.? I, Vashti Dickinson PA-C, have personally reviewed and agree with the information entered by the scribe. Coding Level of Care Code New Pt Level 3 (34857) Complex EM visit Add On G2211 Diagnoses Injury of right rotator cuff S46.001A Fracture of greater tuberosity of right humerus S42.251A CPT Codes Fracture Care - Fracture Billing Code: Fracture Billing Code ([id number])
[2023-12-30 15:03] VITALS: BMI 29.3
== END 2023-12-30 15:34 | disposition home or self-care (01) ==
PROVIDERS: PCP Internal Medicine; Visit Provider Physician Assistant
DX: S46.001A Unspecified injury of muscle(s) and tendon(s) of the rotator cuff of right shoulder, initial encounter (principal); S42.251A Displaced fracture of greater tuberosity of right humerus, initial encounter for closed fracture
CPT/HCPCS: 99203; G2211

== ENCOUNTER → 2023-12-30 14:50 | Outpatient (BNVA) | payer OTHER, SELFPAY | PROVIDERS: PCP Internal Medicine; Visit Provider Physician Assistant | DX: S42.251A Displaced fracture of greater tuberosity of right humerus, initial encounter for closed fracture (principal) | CPT/HCPCS: 99202 ==

== ENCOUNTER 2024-01-24 10:18 | Outpatient (REF) | payer OTHER, SELFPAY ==
--- NOTE | ~2024-01-24 | MR_ITS ---
EXAMINATION: MR SHOULDER WITHOUT CONTRAST, RIGHT CLINICAL INFORMATION: Right shoulder pain and clavicular swelling following an injury on 01/31/2024. Decreased range of motion. Fracture. COMPARISON: Right shoulder radiographs dated 12/02/2023. TECHNIQUE: MRI of the shoulder without contrast was performed on a high-field scanner. FINDINGS: ROTATOR CUFF: Moderate supraspinatus and infraspinatus tendinosis. There is irregular full-thickness partial tearing involving the majority of the supraspinatus tendon with articular surface tearing extending posteriorly into the infraspinatus tendon. Overall tearing measures up to 3.5 x 3.0 cm (AP x ML) with retraction of the torn tendon fibers to the humeral head apex. Mild subscapularis tendinosis. No muscle atrophy or fatty infiltration. BICEPS: Intact. CORACOACROMIAL ARCH: The undersurface of the acromion is minimally curved with no subacromial spur. Mild acromioclavicular osteoarthritis. LABRUM/CAPSULE: Linear fluid signal within the undersurface of the superior and posterosuperior labrum as well as the posterior and posteroinferior labrum, consistent with nondisplaced undersurface tearing. Mild thickening and edema of the inferior joint capsule which could indicate a capsular sprain given recent injury. No full-thickness tear. GLENOHUMERAL JOINT/MARROW: Redemonstration of a nondisplaced fracture through the posterior aspect of the greater tuberosity measuring up to 1.5 cm with adjacent marrow edema. Bone detail somewhat limited on MR examination. Findings are in the region of the infraspinatus tendon insertion. No displaced fracture. No extension of the fracture line to the articular surface. Intact articular cartilage. Small joint effusion. MR/MR shoulder RT wo con IMPRESSION: 1. Moderate supraspinatus and infraspinatus tendinosis with irregular full-thickness partial tearing involving the majority of the supraspinatus tendon as well as articular surface tearing extending posteriorly into the infraspinatus tendon. The torn tendon fibers are retracted to the humeral head apex. Mild subscapularis tendinosis. 2. Mild acromioclavicular osteoarthritis. 3. Nondisplaced undersurface tearing of the superior, posterosuperior, posterior, and posteroinferior labrum. 4. Nondisplaced fracture through the posterior aspect of the greater tuberosity with adjacent marrow edema. Bone detail somewhat limited on MR examination. No extension of the fracture line to the articular surface. Small joint effusion. 5. Thickening and edema of the inferior joint capsule which could indicate a capsular sprain. No full-thickness tear. Electronically signed by: Tashi Shaw MD 01/29/2024 11:57 AM EDT
== END 2024-01-24 10:19 | disposition home or self-care (01) ==
LOC: HO.MRI 10:18
PROVIDERS: PCP Internal Medicine; Visit Provider Physician Assistant
DX: S42.251A Displaced fracture of greater tuberosity of right humerus, initial encounter for closed fracture (principal); S46.001A Unspecified injury of muscle(s) and tendon(s) of the rotator cuff of right shoulder, initial encounter
CPT/HCPCS: 73221

== ENCOUNTER 2024-02-05 11:58 | Outpatient (AMB) | payer OTHER, SELFPAY ==
--- NOTE | 2024-02-05 12:01 | A.OFFVIS_ITS ---
Vital Signs 02/05/24 12:08 Height 5 ft 7 in Weight 187 lb BMI 29.3 Intake Visit Reasons: OV- MRI review Intake Note: Paolo a 43 year old right hand dominant male who presents today for an MRI review s/p right shoulder injury, DOI 12/01/23. IMPRESSION: 1. Moderate supraspinatus and infraspinatus tendinosis with irregular full-thickness partial tearing involving the majority of the supraspinatus tendon as well as articular surface tearing extending posteriorly into the infraspinatus tendon. The torn tendon fibers are retracted to the humeral head apex. Mild subscapularis tendinosis. 2. Mild acromioclavicular osteoarthritis. 3. Nondisplaced undersurface tearing of the superior, posterosuperior, posterior, and posteroinferior labrum. 4. Nondisplaced fracture through the posterior aspect of the greater tuberosity with adjacent marrow edema. Bone detail somewhat limited on MR examination. No extension of the fracture line to the articular surface. Small joint effusion. 5. Thickening and edema of the inferior joint capsule which could indicate a capsular sprain. No full-thickness tear. Electronically signed by: Tashi Shaw MD 01/29/2024 Allergies No Known Allergies [No Known Allergies*] Allergy (Verified 02/05/24 12:03) HPI HPI OV- MRI review: Details: Paolo a 43 year old right hand dominant male who presents today for an MRI review s/p right shoulder injury, DOI 12/01/23. He continues to have pain with overhead activity and stiffness. He had an MRI which showed some superior cuff tendinosis as well as a healing greater tuberosity fracture. 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 IMPRESSION: 1. Moderate supraspinatus and infraspinatus tendinosis with irregular full-thickness partial tearing involving the majority of the supraspinatus tendon as well as articular surface tearing extending posteriorly into the infraspinatus tendon. The torn tendon fibers are retracted to the humeral head apex. Mild subscapularis tendinosis. 2. Mild acromioclavicular osteoarthritis. 3. Nondisplaced undersurface tearing of the superior, posterosuperior, posterior, and posteroinferior labrum. 4. Nondisplaced fracture through the posterior aspect of the greater tuberosity with adjacent marrow edema. Bone detail somewhat limited on MR examination. No extension of the fracture line to the articular surface. Small joint effusion. 5. Thickening and edema of the inferior joint capsule which could indicate a capsular sprain. No full-thickness tear. Electronically signed by: Tashi Shaw MD 01/29/2024 Assessment & Plan Assessment & Plan (1) Fracture of greater tuberosity of right humerus: Code(s): S42.251A - Displaced fracture of greater tuberosity of right humerus, initial encounter for closed fracture Category: Medical Plan: This is a 43-year-old gentleman with a greater tuberosity fracture as well as a rotator cuff injury. His MRI shows partial-thickness tearing. The issue really is that it has only been 2 months since the fracture and he is still stiff. I recommend continue physical therapy and continue to push range of motion. I would like to see him back in 2 months and at that point I suspect he will not need anything but we will be able to better evaluate his rotator cuff and the role of surgery. I explained this to him. He understands. (2) Injury of right rotator cuff: Code(s): S46.001A - Unspecified injury of muscle(s) and tendon(s) of the rotator cuff of right shoulder, initial encounter Category: Medical Plan: Coding Level of Care Code Est Pt Level 4 (72940) Diagnoses Fracture of greater tuberosity of right humerus S42.251A Injury of right rotator cuff S46.001A
[2024-02-05 12:08] VITALS: BMI 29.3
== END 2024-02-05 12:23 | disposition home or self-care (01) ==
PROVIDERS: PCP Internal Medicine; Visit Provider Orthopaedic Surgery
DX: S42.251A Displaced fracture of greater tuberosity of right humerus, initial encounter for closed fracture (principal); S46.001A Unspecified injury of muscle(s) and tendon(s) of the rotator cuff of right shoulder, initial encounter
CPT/HCPCS: 99213

== ENCOUNTER → 2024-02-05 11:58 | Outpatient (BNVA) | payer OTHER, SELFPAY | PROVIDERS: PCP Internal Medicine; Visit Provider Orthopaedic Surgery | DX: S42.251A Displaced fracture of greater tuberosity of right humerus, initial encounter for closed fracture (principal); S46.001A Unspecified injury of muscle(s) and tendon(s) of the rotator cuff of right shoulder, initial encounter | CPT/HCPCS: 99212 ==

== ENCOUNTER 2024-04-01 14:52 | Outpatient (RCR) | payer OTHER, SELFPAY ==
--- NOTE | 2024-01-29 10:47 | MHC.PT.EP ---
[facility] [place] Office [place] [facility] [place] [facility] [address] Griselda Carlisle [address] [phone] F: [phone] F: [phone] F: [phone] F: [phone] Physical Therapy Plan of Care Date of Evaluation: 01/29/24 Date of Surgery: NA Diagnosis: Unspecified injury of muscles and tendon of the rotator cuff of R shoulder Displaces fracture of greater tuberosity of R humerus Assessment: Paolo is a 43 year old male who is referred to PT for Unspecified injury of muscles and tendon of the rotator cuff of R shoulder, Displaces fracture of greater tuberosity of R humerus . He injured himself at work about 7 weeks back secondary to a fall. On PT examination he presents with TTP over R bicep tendon, bicipital groove, R UT, R levator scap and R shoulder posterior joint line, 5-8/10 pain in R shoulder with overhead motion and R SL, decreased R shoulder ROM, decreased R shoulder and scap strength, and altered posture. He lives with his girl friend and is independent with ADLS but has pain with them. 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 He would benefit from skilled PT to address the aforementioned impairments and improve tolerance to functional activities. Frequency and Duration: The patient will be seen 2/week for 8 weeks Short Term Goals: 1. Pt will have 50% decrease in pain which will enable him to sleep through the night in 2 weeks. 2. 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 Pt will demonstrate an increase in muscle strength by 1 grade which will enable him to perform all IADLS without pain in 7 weeks. 2. Pt will be independent with all HEP and return to PLOF in 8 weeks. Treatment Plan: Modalities to reduce pain, spasms and effusion. Manual therapy to restore motion and function. Therapeutic exercise to improve strength and flexibility. Neuromuscular re-education for posture and balance. Therapeutic activities to return to functional activities of daily living. Electronically signed by: Vianca Benjamín, PT DPT Please sign and return to therapist. Thank you for your referral.
--- NOTE | 2024-04-01 15:57 | MHC.PT.DC ---
[facility] [place] Office [place] Office [place] Office [address] Griselda [place] [address] [phone] F: [phone] F: [phone] F: [phone] F: [phone] Physical Therapy Discharge Report Diagnosis: Unspecified injury of muscles and tendon of the rotator cuff of R shoulder Displaces fracture of greater tuberosity of R humerus Date of Surgery: NA Date of Evaluation: 01/29/24 Date of Discharge: 04/01/24 Treatments to Date: 14 Cancellations to Date: 0 No Shows to Date: 0 Discharge Status: Achieved Goals Improved Function Independent with HEP Discharge Summary: Paolo has completed 14 PT visits. He has made significant improvements. He presents with full shoulder ROM however still experienced mild tightness at end range. His insurance end date is today and therefore he will not be using his last visit next week. Paolo is d/c from PT today. He was in agreement with the plan. Electronically signed by: Vianca Butts PT DPT Please sign and return to therapist. Thank you for your referral.
== END 2024-04-01 15:57 | disposition home or self-care (01) ==
LOC: HO.PT 14:52
PROVIDERS: PCP Internal Medicine; Visit Provider Physician Assistant
DX: S46.001D Unspecified injury of muscle(s) and tendon(s) of the rotator cuff of right shoulder, subsequent encounter (principal); S42.251D Displaced fracture of greater tuberosity of right humerus, subsequent encounter for fracture with routine healing
CPT/HCPCS: 97110; 97140; 97161; 97530

== ENCOUNTER 2024-04-11 12:14 | Outpatient (AMB) | payer OTHER, SELFPAY ==
--- NOTE | 2024-04-11 12:16 | MHC.OFFVIS ---
Intake Visit Reasons: OV-right shoulder - 2 month follow up Intake Note: Paolo is a 43 year old right hand dominant male who presents today for a follow up of his right shoulder injury, DOI 12/01/23. Patient reports that he has completed physical therapy but does not feel like he is at 100% Allergies No Known Allergies [No Known Allergies*] Allergy (Verified 02/05/24 12:03) HPI HPI OV-right shoulder - 2 month follow up: Details: Paolo is a 43 year old right hand dominant male who presents today for a follow up of his right shoulder injury, DOI 12/01/23. Patient reports that he has completed physical therapy but does not feel like he is at 100%. He is having pain at night and still can not lift overhead. 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 4+ out of 5 empty can. Ninety abduction. One hundred thirty overhead abduction. Internal rotation to S1 Office Procedures Joint Inj/Aspir; Non-Pain Clin Joint Injection/Drain Details: Injected 1 mL of Decadron and 3 mL 1% lidocaine and 3 mL of 0.25% Marcaine. Site was prepped using aseptic technique. Patient tolerated the procedure well. Approach Used: posterolateral Shoulders, Hips, Knees, Shoulder Injection Large joint 51278: Right Shoulder Coding Procedure code (CPT) selection complete Assessment & Plan Assessment & Plan (1) Fracture of greater tuberosity of right humerus: Code(s): S42.251A - Displaced fracture of greater tuberosity of right humerus, initial encounter for closed fracture Category: Medical Plan: Improving. I injected his shoulder as he is still having difficulty sleeping. Follow up in 2 months. (2) Injury of right rotator cuff: Code(s): S46.001A - Unspecified injury of muscle(s) and tendon(s) of the rotator cuff of right shoulder, initial encounter Category: Medical Plan: There is a partial tear of rotator cuff in the setting of a greater tuberosity fracture. I recommend waiting until his motion is returned to normal before discussing surgery. Continue work as tolerated Coding Level of Care Code Est Pt Level 4 (66150) Diagnoses Fracture of greater tuberosity of right humerus S42.251A Injury of right rotator cuff S46.001A CPT Codes Shoulders, Hips, Knees, - Shoulder Injection Large joint 57474: Right Shoulder ([id number])
== END 2024-04-11 12:43 | disposition home or self-care (01) ==
PROVIDERS: PCP Internal Medicine; Visit Provider Orthopaedic Surgery
DX: S42.251A Displaced fracture of greater tuberosity of right humerus, initial encounter for closed fracture (principal); S46.001A Unspecified injury of muscle(s) and tendon(s) of the rotator cuff of right shoulder, initial encounter; Z04.2 Encounter for examination and observation following work accident
CPT/HCPCS: 20610; 99214

== ENCOUNTER → 2024-04-11 12:14 | Outpatient (BNVA) | payer OTHER, SELFPAY | PROVIDERS: PCP Internal Medicine; Visit Provider Orthopaedic Surgery | DX: S42.251A Displaced fracture of greater tuberosity of right humerus, initial encounter for closed fracture (principal); S46.001A Unspecified injury of muscle(s) and tendon(s) of the rotator cuff of right shoulder, initial encounter; X58.XXXA Exposure to other specified factors, initial encounter; Y93.9 Activity, unspecified; Y92.9 Unspecified place or not applicable; Y99.9 Unspecified external cause status | CPT/HCPCS: 20610; 99212; J0665; J1100; J2003 ==

== ENCOUNTER 2024-06-13 14:59 | Outpatient (AMB) | payer OTHER, SELFPAY ==
--- NOTE | 2024-06-13 15:01 | MHC.OFFVIS ---
Vital Signs 06/13/24 15:02 Height 5 ft 7 in Weight 187 lb BMI 29.3 Intake Visit Reasons: OV-right shoulder - 2 month follow up Intake Note: Paolo is a 43 year old right hand dominant male who presents today for a follow up of his right shoulder. On 12/01/23 he was in the back of a work truck when his foot went through a small hole and he fell on his right side. Due to this injury he sustained a Humerus fracture & Partial tear of the rotator cuff. He needed to improve ROM prior to discussing any surgical interventions of the rotator cuff. He is currently at work doing activity as tolerated Allergies No Known Allergies [No Known Allergies*] Allergy (Verified 02/05/24 12:03) HPI HPI OV-right shoulder - 2 month follow up: Details: Paolo is a 43 year old right hand dominant male who presents today for a follow up of his right shoulder. On 12/01/23 he was in the back of a work truck when his foot went through a small hole and he fell on his right side. Due to this injury he sustained a Humerus fracture & Partial tear of the rotator cuff. He needed to improve ROM prior to discussing any surgical interventions of the rotator cuff. Work status. He states he continues to improve but still feels some discomfort with lifting in his right shoulder. He injured himself in November of 2023 and had an MRI in the beginning of January. He comes in today having completed physical therapy and feeling well. 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 He feels good and is motion is good but still weak compared to the contralateral side. He may continue working as tolerated with avoidance of heavy lifting and I will see him back in 2 months. At that time if he is not 100% we may consider repeat MRI to ensure the integrity of the rotator cuff. Coding Level of Care Code Est Pt Level 3 (93529) Diagnoses Fracture of greater tuberosity of right humerus S42.251A
[2024-06-13 15:02] VITALS: BMI 29.3
== END 2024-06-13 15:21 | disposition home or self-care (01) ==
PROVIDERS: PCP Internal Medicine; Visit Provider Orthopaedic Surgery
DX: S42.251A Displaced fracture of greater tuberosity of right humerus, initial encounter for closed fracture (principal)
CPT/HCPCS: 99213

== ENCOUNTER → 2024-06-13 14:59 | Outpatient (BNVA) | payer OTHER, SELFPAY | PROVIDERS: PCP Internal Medicine; Visit Provider Orthopaedic Surgery | DX: S42.251A Displaced fracture of greater tuberosity of right humerus, initial encounter for closed fracture (principal) | CPT/HCPCS: 99212 ==

== ENCOUNTER 2024-08-15 12:10 | Outpatient (REF) | payer OTHER, SELFPAY ==
--- NOTE | ~2024-08-15 | XR_ITS ---
EXAMINATION: XR SHOULDER, RIGHT CLINICAL INFORMATION: M25.519 - Pain in unspecified shoulder COMPARISON: 12/02/2023, MRI right shoulder 01/24/2024. TECHNIQUE: Three views of the right shoulder. FINDINGS: Normal bone mineralization. No fracture, dislocation, or suspicious bone lesion. Normal alignment. The glenohumeral joint demonstrates mild degenerative arthritis. The AC joint demonstrates mild degenerative spurring. There is a type II acromion. No undersurface spurring. The subacromial space is preserved. Remainder of the soft tissue and bony structures appear normal. XR/XR shoulder RT min 2V IMPRESSION: 1. No acute bony abnormalities. 2. Mild degenerative arthritis in the AC joint and glenohumeral joint. Electronically signed by: Mo Alicia MD 08/17/2024 04:54 PM EDT
== END 2024-08-15 12:11 | disposition home or self-care (01) ==
LOC: HO.HOSX 12:10
PROVIDERS: Visit Provider Orthopaedic Surgery
DX: M25.511 Pain in right shoulder (principal); Z87.81 Personal history of (healed) traumatic fracture
CPT/HCPCS: 73030; 99212

== ENCOUNTER 2024-08-15 14:42 | Outpatient (AMB) | payer OTHER, SELFPAY ==
--- NOTE | 2024-08-15 14:47 | A.OFFVIS_ITS ---
Intake Visit Reasons: OV - Right RTC Tear & Humerus Fracture Intake Note: Paolo is a 43 year old right hand dominant male who presents today for a follow up of his right shoulder, Humerus fracture & Partial tear of the rotator cuff. This was a work related injury from 12/01/2023 - he was in the back of the work truck when his foot went through a small hole and he fell onto his right side. At his last visit he was still showing weakness of the right side, if this is not improved we would consider MRI to see integrity of RTC. Allergies No Known Allergies [No Known Allergies*] Allergy (Verified 08/15/24 14:48) HPI HPI OV - Right RTC Tear & Humerus Fracture: Details: This is a 43-year-old who had a nondisplaced fracture of the greater trochanter as well as a partial-thickness rotator cuff tear. He was initially quite stiff and weak but has improved significantly since his injury 8 months ago. He has almost full range of motion now but does describe some weakness in abduction that is mild. 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 1. Moderate supraspinatus and infraspinatus tendinosis with irregular full- thickness partial tearing involving the majority of the supraspinatus tendon as well as articular surface tearing extending posteriorly into the infraspinatus tendon. The torn tendon fibers are retracted to the humeral head apex. Mild subscapularis tendinosis. 2. Mild acromioclavicular osteoarthritis. 3. Nondisplaced undersurface tearing of the superior, posterosuperior, posterior, and posteroinferior labrum. 4. Nondisplaced fracture through the posterior aspect of the greater tuberosity with adjacent marrow edema. Bone detail somewhat limited on MR examination. No extension of the fracture line to the articular surface. Small joint effusion. 5. Thickening and edema of the inferior joint capsule which could indicate a capsular sprain. No full-thickness tear Assessment & Plan Assessment & Plan (1) Injury of right rotator cuff: Code(s): S46.001A - Unspecified injury of muscle(s) and tendon(s) of the rotator cuff of right shoulder, initial encounter Category: Medical Plan: 43-year-old gentleman who has improved significantly after recovering from the nondisplaced fracture of the greater tuberosity. He does have some weakness now. The MRI from 6 months ago was difficult to interpret in the setting of a fracture and so I recommend a repeat MRI to assess the integrity of the rotator cuff. Orders: Orders MR shoulder RT wo con Today S46.001A - Unspecified injury of muscle(s) and tendon(s) of the rotator cuff of right shoulder, initial encounter XR shoulder RT min 2V Today M25.519 - Pain in unspecified shoulder Coding Level of Care Code Est Pt Level 4 (42364) Diagnoses Injury of right rotator cuff S46.001A
== END 2024-08-15 15:06 | disposition home or self-care (01) ==
LOC: HO.HOS 14:43
PROVIDERS: PCP Internal Medicine; Visit Provider Orthopaedic Surgery
DX: S46.001A Unspecified injury of muscle(s) and tendon(s) of the rotator cuff of right shoulder, initial encounter (principal)
CPT/HCPCS: 99214

== ENCOUNTER → 2024-08-15 14:44 | Outpatient (BNV) | payer OTHER, SELFPAY | PROVIDERS: Visit Provider Radiology Diagnostic Radiology | DX: M25.511 Pain in right shoulder (principal) | CPT/HCPCS: 73030 ==

== ENCOUNTER → 2024-08-23 16:43 | Outpatient (BNV) | payer OTHER, SELFPAY | PROVIDERS: PCP Internal Medicine; Visit Provider Radiology Diagnostic Radiology | DX: M25.511 Pain in right shoulder (principal) | CPT/HCPCS: 73221 ==

== ENCOUNTER 2024-08-23 16:47 | Outpatient (REF) | payer OTHER, SELFPAY ==
--- NOTE | ~2024-08-23 | MR_ITS ---
EXAMINATION: MR SHOULDER, RIGHT CLINICAL INFORMATION: Work accident, 43-year-old male, fell onto shoulder 11/21/2023. Pain. No history of surgery. Unspecified injury of muscles and tendons of the rotator cuff. COMPARISON: 01/24/2024 MRI right shoulder. Right shoulder radiographs 08/07/2024. TECHNIQUE: Multiplanar multisequence MR imaging of the right shoulder was done without IV contrast. Examination performed on a 1.5 [place] Siemens unit utilizing standard sequences. FINDINGS: Rotator Cuff and Biceps Tendon: Supraspinatus: There is a tiny rent type insertional tear of the most anterior fibers of the tendon from the lateral footplate/bursal aspect (series 8, images 10-11; series 10, image 19).), measuring approximately 3 mm in transverse diameter by 4 mm in AP diameter. Of the more posterior tendon, at the junction of the fibers with the infraspinatus, there is a high-grade insertional tear encompassing the majority of the footplate attachment with only scant bursal fibers remaining intact. Approximately two thirds of the tendon as performed from the medial footplate attachment. The tear measures approximately 10 mm in transverse, by 10 mm in AP diameter (series 8, images 14-15; series 10, image 19). No definite tendinous retraction or full-thickness tearing is identified, and the majority of the high-grade tearing seen on 01/24/2024 has healed on today's examination. There is persistent high signal within the tendon within the critical zone consistent with tendinopathy. Normal-appearing muscle belly and myotendinous junction. Infraspinatus: Insertional aspect tear of the anterosuperior fibers as discussed above. Tendon otherwise appears grossly intact, with mild associated increased signal extending to the myotendinous junction consistent with tendinopathy. There may be a small amount of undersurface fraying of the tendon. Normal muscle belly. Subscapularis: There is redemonstration of increased signal predominantly of the undersurface of the subscapularis tendon, suggestive of tendinosis. There may be a small amount of undersurface fraying. No high-grade tear, full-thickness tear, or tendinous retraction identified. The muscle belly is normal. Teres Minor: Intact and normal in signal. Normal muscle belly. Biceps Long Head: Normally located within the bicipital groove. Normal morphology. The tendon within the rotator interval has normal signal and morphology. AC Joint and Acromiohumeral Arch: There is mild to moderate predominantly superior surface spurring and joint capsular distention of the AC joint with mild periarticular edema present. There is no significant undersurface spurring or supraspinatus outlet stenosis. There is a type II acromion, without significant undersurface spurring. Mild narrowing of the subacromial space is present, with the space measuring approximately 7 mm in diameter. Glenohumeral Joint and Labrum: There is normal joint fluid without effusion. Mild degenerative arthritis in the glenohumeral joint is present, however no subchondral bone plate edema is identified. Mild thinning of the humeral articular cartilage is present without full-thickness defect. Glenoid cartilage grossly appears intact with mild thinning of the posteroinferior aspect. No full-thickness defects. Labrum again demonstrates irregular signal throughout the superior aspect consistent with irregular type tearing. This likely involves the anterior labrum as well. Mildly irregular signal in the posterior labrum, possible posterior labral tearing. Inferior labrum is difficult to assess. Osseous Structures: Previously seen edema throughout the greater tuberosity has resolved, reflective of resolved bone contusion. There is currently no significant abnormal bone marrow edema, or abnormal infiltrating bone marrow signal. Mild periarticular edema of the AC joint as detailed above. Spino-glenoid Notch: Normal. Quadrilateral Space: Normal. Other: There is mild to moderate fluid signal throughout the subacromial/subdeltoid bursa consistent with bursitis. MR/MR shoulder RT wo con IMPRESSION: 1. Since the prior exam, the majority of the high-grade tear of the supraspinatus tendon has resolved. There is a tiny rim rent type insertional tear of the most anterior fibers of the tendon from the bursal aspect of the lateral footplate attachment measuring 3 x 4 mm. 2. At the junction of the supraspinatus and infraspinatus fibers, there is high-grade insertional tearing encompassing the majority of the footplate attachment, with only scant bursal fibers remaining intact. This tear measures approximately 10 x 10 mm. 3. There is residual tendinosis/tendinopathy of the supraspinatus, infraspinatus, and subscapularis tendons. 4. Bone marrow edema previously seen in the greater tuberosity has resolved, likely indicating resolved contusion. 5. Suspect tearing of the anterior, superior, and posterior labrum. Superior labral tearing likely undermines the bicipital anchor. The inferior labrum is difficult to assess on this exam. 6. Mild degenerative arthritis in the AC joint and glenohumeral joint. 7. There is mild to moderate subacromial/subdeltoid bursitis. Electronically signed by: Mo Alicia MD 08/24/2024 08:49 AM EDT
== END 2024-08-23 16:48 | disposition home or self-care (01) ==
LOC: HO.MRI 16:47
PROVIDERS: PCP Internal Medicine; Visit Provider Orthopaedic Surgery
DX: S46.001A Unspecified injury of muscle(s) and tendon(s) of the rotator cuff of right shoulder, initial encounter (principal)
CPT/HCPCS: 73221